=== PATIENT | female | born 1965 | race Caucasian/White ===

== ENCOUNTER 2018-08-23 08:36 | Outpatient (CLI) | payer SELFPAY ==
[2018-08-24 12:20] LABS: HBs Antibody, Quant 3.7 mIU/mL; Hepatitis B Surface Ab Negative
[2018-08-24 12:30] LABS: Rubella IgG Ab (UVM) Positive
[2018-08-24 12:39] LABS: Measles IgG Antibody Positive; Mumps Antibody IgG Positive (Negative); Varicella IgG Antibody Positive
== END 2018-08-23 08:56 ==
PROVIDERS: PCP Nurse Practitioner Family; Visit Provider Nurse Practitioner Family
DX: Z02.1 Encounter for pre-employment examination (principal); Z01.84 Encounter for antibody response examination
CPT/HCPCS: 36415; 86706; 86787; 86735; 86762; 86765